=== PATIENT | male | born 1945 | race Caucasian/White ===

== ENCOUNTER 2025-07-16 10:33 | Emergency (ER) | payer BC, MEDICARE ==
[2025-07-16] MEDS ORDERED: Lidocaine 1% PF 5 ML VIAL ONE (11:17)
== END 2025-07-16 11:42 | disposition home or self-care (01) ==
LOC: BURERS 10:33
DX: S81.812A Laceration without foreign body, left lower leg, initial encounter (principal); I10 Essential (primary) hypertension; I25.2 Old myocardial infarction; E11.9 Type 2 diabetes mellitus without complications; Z95.5 Presence of coronary angioplasty implant and graft; Z79.84 Long term (current) use of oral hypoglycemic drugs; Z79.899 Other long term (current) drug therapy; W22.8XXA Striking against or struck by other objects, initial encounter; Y93.89 Activity, other specified
CPT/HCPCS: 12001; 99282

== ENCOUNTER 2025-07-17 07:03 | Emergency (ER) | payer BC, MEDICARE | END 2025-07-17 07:15 | disposition home or self-care (01) | LOC: BURERS 07:03 | DX: S81.812D Laceration without foreign body, left lower leg, subsequent encounter (principal); I10 Essential (primary) hypertension; E11.9 Type 2 diabetes mellitus without complications; I25.2 Old myocardial infarction; W31.89XD Contact with other specified machinery, subsequent encounter; Z79.84 Long term (current) use of oral hypoglycemic drugs; Z79.899 Other long term (current) drug therapy ==